=== PATIENT | female | born 1945 | race Caucasian/White ===

== ENCOUNTER 2017-07-10 12:44 | Outpatient (CLI) | payer BC, OTHER ==
[~2017-07-10 12:44] MED LIST: CHOLESTEROL MEDICATION; ZOLM5TAB10 PO
== END 2017-07-10 18:56 | disposition home or self-care (01) ==
LOC: SMA 12:44
PROVIDERS: ATTEND Family Medicine
DX: R92.2 Inconclusive mammogram (principal)
CPT/HCPCS: 77066

== ENCOUNTER 2018-08-03 09:10 | Outpatient (CLI) | payer BC, OTHER | END 2018-08-03 21:25 | disposition home or self-care (01) | LOC: SMA 09:10 | PROVIDERS: ATTEND Family Medicine | DX: N60.01 Solitary cyst of right breast (principal) | CPT/HCPCS: 76641; 77066 ==

== ENCOUNTER 2019-01-18 13:50 | Outpatient (CLI) | payer BC, OTHER | END 2019-01-18 21:05 | disposition home or self-care (01) | LOC: SUS 13:50 | PROVIDERS: ATTEND Physician Assistant Medical | DX: N60.01 Solitary cyst of right breast (principal) | CPT/HCPCS: 76642 ==